=== PATIENT | female | born 2000 | race Two or more races ===

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

== ENCOUNTER 2018-02-24 10:13 | Outpatient (CLI) | payer OTHER ==
[~2018-02-24 10:13] MED LIST: ETODOLAC500 M1; KETO10TA2 PO; NAPROXEN500 MG PO; [UNRECOGNIZED DRUG - OTHER]
== END 2018-02-24 10:21 | disposition home or self-care (01) ==
LOC: TOM 10:13
DX: Q67.6 Pectus excavatum (principal); J84.10 Pulmonary fibrosis, unspecified